=== PATIENT | female | born 1980 | race Caucasian/White ===

== ENCOUNTER 2018-07-15 09:50 | Outpatient (CLI) | payer BC ==
--- NOTE | 2018-07-15 13:21 | ULT ---
RIGHT BREAST ULTRASOUND: Date: 07/15/18 HISTORY: Palpable abnormality in the 1-2 o'clock position of right breast. FINDINGS: Correlation made with mammogram from same date. Sonographic evaluation of the region of palpable concern demonstrates a 1.2 cm cyst at the 1 o'clock position of the right breast, 1.0 cm from the nipple. IMPRESSION: BIRADS Category 2 - Benign findings. Return to age-appropriate screening based on risk factors. POS: OFF
== END 2018-07-15 09:51 | disposition home or self-care (01) ==
LOC: BICMAMMO 09:50
PROVIDERS: ATTEND Obstetrics & Gynecology
DX: N64.59 Other signs and symptoms in breast (principal)
CPT/HCPCS: 77066; G0279

== ENCOUNTER 2020-11-16 13:33 | Emergency (ER) | payer BC ==
[2020-11-16 14:34] LABS: #Basophils 0.2 thou/uL (0.0-0.2); #Eosinphils 0.1 thou/uL (0.0-0.7); #Lymphocytes 2.5 thou/uL (1.20-3.40); #Monocytes 0.4 thou/uL (0.11-0.59); #Neutrophils 5.7 thou/uL (1.40-6.50); %Basophils 1.8 % (0.0-1.0); %Eosinophils 0.6 % (0.0-10.0); %Lymphocytes 28.6 % (21.0-51.0); %Monocytes 4.4 % (0.0-10.0); %Neutrophils 64.6 % (42.0-75.0); Hemoglobin 15.3 g/dL (12.0-16.0); Mean Corpuscular HGB CONC 32.6 g/dL (32.0-36.0); Mean Corpuscular Hemoglobin 29.7 pg (27.0-31.0); Mean Corpuscular Volume 91.1 fL (78.0-98.0); Mean Platelet Volume 8.3 fL (7.4-10.4); Platelet Count 284 thou/uL (130-400); RBC Distribution Width 11.7 % (11.5-14.5); Red Blood Cell (RBC) Count 5.14 mill/uL (4.20-5.40); White Blood Cell (WBC) Count 8.8 thou/uL (4.8-10.8)
[2020-11-16 14:55] LABS: ALT (SGPT) Less than 7 U/L (8-55); AST (SGOT) 9 U/L (5-34); Albumin 4.1 g/dL (3.5-5.0); Alkaline Phosphatase 76 U/L (40-110); Anion Gap 8 mmol/L (10-20); BUN (Urea Nitrogen) 11 mg/dL (7.0-18.7); Bilirubin, Total 0.2 mg/dL (0.2-1.2); Calc. Creatinine Clearance 0 mL/min (70-130); Carbon Dioxide 31 mmol/L (22-29); Chloride 105 mmol/L (98-107); Globulin 2.5 g/dL (2.4-3.5); Glucose 75 mg/dL (70-105); Lipase 26 U/L (8-78); Potassium 3.8 mmol/L (3.5-5.1); Protein, Total 6.6 g/dL (6.0-8.3); Sodium 140 mmol/L (136-145)
[2020-11-16] MEDS ORDERED: Ketorolac Tromethamine 30 MG/ML VIAL ONE (15:48)
== END 2020-11-16 15:55 | disposition home or self-care (01) ==
LOC: ERS 13:33
DX: R07.89 Other chest pain (principal); M54.9 Dorsalgia, unspecified; F17.210 Nicotine dependence, cigarettes, uncomplicated
CPT/HCPCS: 71045; 80053; 83690; 84484; 85025; 85379; 93005; 94760; 96374; J1885